=== PATIENT | female | born 1985 | race Caucasian/White ===

== ENCOUNTER 2017-07-11 10:59 | Inpatient (IN) | payer BC ==
[2017-07-11] VITALS (28 sets, daily range): BP systolic 90–132; BP diastolic 50–67; PULSE 61–90; TEMP 97.9–98.5
[~2017-07-11] VITALS: Ht 160 cm; Wt 84.5 kg
[~2017-07-11 10:59] MED LIST: MOTRIN 600600 MG/TAB PO; PERCOCET 325 MG1 TA2 PO; PRENATAL1 TA1 PO
[2017-07-11 11:26] LABS: BASO % 0.2 % (0.0-2.0); EOS # 0.1 (0.0-0.7); EOS % 0.5 % (0-4.0); GRAN # 7.5 (1.4-6.5); GRAN % 81.7 % (42.2-75.2); HEMATOCRIT 39.8 % (37.0-47.0); HEMOGLOBIN 13.6 g/dl (12.5-16.0); LYMPH # 1.2 (1.2-3.4); LYMPH % 12.6 % (20.0-51.0); MEAN CELL VOLUME 96 fl (80.0-100.0); MEAN CORPUSCULAR HEMOGLOBIN 33 pg (27.0-31.0); MEAN CORPUSCULAR HGB CONC 34 g/dl (33.0-37.0); MEAN PLATELET VOLUME 10.1 fl (7.4-10.4); MONO # 0.4 (0.1-0.6); MONO % 4.3 % (1.7-9.3); PLATELET COUNT 160 K/mm3 (130-400); RED BLOOD COUNT 4.13 M/mm3 (4.10-5.30); WHITE BLOOD COUNT 9.2 K/mm3 (4.8-10.8)
[2017-07-12 00:45] VITALS: BP 110/47; PULSE 71; TEMP 98.4
[2017-07-12 08:02] VITALS: BP 100/63; PULSE 70; TEMP 97.8
[2017-07-12] MEDS ORDERED: IBU800 M1 PO (08:26)
[2017-07-12 12:16] VITALS: BP 101/56; PULSE 71; TEMP 97.9
== END 2017-07-12 17:00 | disposition home or self-care (01) | DRG 775 ==
LOC: LDRO 10:59 → LDR 11:00 → LDRO 11:09 → LDR 11:09 → OB 22:39
PROVIDERS: Obstetrics & Gynecology
PROC: 10E0XZZ Delivery of Products of Conception, External Approach (ICD-10-PCS; principal; 2017-07-11)
DX: O48.0 Post-term pregnancy (principal); O34.211 Maternal care for low transverse scar from previous cesarean delivery; N85.8 Other specified noninflammatory disorders of uterus; Z3A.40 40 weeks gestation of pregnancy; Z37.0 Single live birth
CPT/HCPCS: J2405; J2590; J7120

== ENCOUNTER 2018-12-23 10:25 | Inpatient (IN) | payer BC ==
[~2018-12-23] VITALS: Ht 160 cm; Wt 81.8 kg
[2018-12-23] VITALS (31 sets, daily range): BP systolic 117–137; BP diastolic 54–79; PULSE 63–97; TEMP 97.2–98.2
[~2018-12-23 10:25] MED LIST changes: +IBU800 M1 PO
--- NOTE | 2018-12-23 11:00 | NUR ---
Patient ambulatory to R4 with . She was seen by Dr. Joseph in the office today and was 5cm dilated and is being admitted with routine labor orders. She is a G6L5 at 39.3 weeks gestation, she has had one and 4 successful VBACs. Patient changed into gown and wedged to left side in bed. EFMs explained and applied. FHR 130 bpm and reactive. Irregular CTX per toco and patient reports. VSS. Assessment completed and consents signed. IV started in left wrist with labs drawn from site. Patient requesting epidural at this time. LR bolus started per protocol and [employer] notified. Plan of care reviewed.
[2018-12-23 11:17] LABS: BASO % 0.1 % (0.0-2.0); EOS % 0.5 % (0-4.0); GRAN # 6.2 (1.4-6.5); HEMATOCRIT 37.5 % (37.0-47.0); LYMPH # 1.1 (1.2-3.4); LYMPH % 14.2 % (20.0-51.0); MEAN CELL VOLUME 96 fl (80.0-100.0); MEAN CORPUSCULAR HEMOGLOBIN 33 pg (27.0-31.0); MEAN CORPUSCULAR HGB CONC 35 g/dl (33.0-37.0); MEAN PLATELET VOLUME 10.1 fl (7.4-10.4); MONO # 0.4 (0.1-0.6); MONO % 4.6 % (1.7-9.3); PLATELET COUNT 144 K/mm3 (130-400); RED BLOOD COUNT 3.92 M/mm3 (4.10-5.30)
--- NOTE | 2018-12-23 11:32 | NUR ---
1125 CALIN Botello to room to place epidural. Patient sits upright on the side of the bed. FHR difficult to trace in this position, EFM tracing maternal HR as it coorelates with HR from spO2. 1132 Single shot administered by CALIN Botello, see anesthesia record for details.
--- NOTE | 2018-12-23 11:52 | NUR ---
Dr. Joseph to bedside, reviews FHR tracing, SVE with AROM. 6/70/-3 with small amount of clear fluid noted.
--- NOTE | 2018-12-23 13:30 | NUR ---
Pitocin started at 2mu per orders and protocol.
--- NOTE | 2018-12-23 16:41 | NUR ---
Delivery of viable female , to care of nursery RN Savannah Mireles produced immediate vigorous cry upon delivery. Cord clamped by Dr. Joseph and cut by father of . 1643- delivery of placenta, pitocin started per protocol. Patient tolerated well, fundal massage as indicarted. Will continue to monitor, patient resting comfortably in bed.
--- NOTE | 2018-12-23 20:00 | NUR ---
1999- EPIDURAL CATHETER REMOVED WITH BLUE TIP INTACT, IV TO SALINE LOCK, PT ASSISTED TO BATHROOM, ABLE TO VOID 200ML WITHOUT DIFFICULTY. PT PERFORMS PERICARE, CLEAN GOWN, PAD, AND PANTIES PROVIDED. NORMAL LOCHIA DISCUSSED. 2009- PT ASSISTED TO WHEELCHAIR. TO ROOM 216, BABY AND BELONINGS WITH PT. PT ORIENTED TO ROOM AND CALL LIGHTS. PLAN OF CARE DISCUSSED AND QUESTIONS ANSWERED. PT DENIES FURTHER NEEDS AT THIS TIME.
[2018-12-24 04:20] VITALS: BP 117/59; PULSE 62; TEMP 98.1
[2018-12-24] MEDS ORDERED: MOTRIN 800800 MG/TAB PO (06:42)
--- NOTE | 2018-12-24 09:23 | NUR ---
Initial visit attempt; Family resting, Physician Gynecologist left card of congratulations and information regarding the availability of [facility].
[2018-12-24 10:00] VITALS: BP 103/63; PULSE 81; TEMP 97.6
== END 2018-12-24 18:15 | disposition home or self-care (01) | DRG 807 ==
LOC: OB 10:25 → LDR 10:28 → OB 20:53
PROVIDERS: ADMIT Obstetrics & Gynecology
PROC: 10E0XZZ Delivery of Products of Conception, External Approach (ICD-10-PCS; principal; 2018-12-23)
DX: O99.62 Diseases of the digestive system complicating childbirth (principal); Z37.0 Single live birth; K21.9 Gastro-esophageal reflux disease without esophagitis; O34.211 Maternal care for low transverse scar from previous cesarean delivery; O69.1XX0 Labor and delivery complicated by cord around neck, with compression, not applicable or unspecified; Z3A.39 39 weeks gestation of pregnancy
CPT/HCPCS: J2590; J2795; J7120

== ENCOUNTER → 2021-01-14 | Outpatient (CLI) | payer BC ==
[~2021-01-14] MED LIST changes: +MOTRIN 800800 MG/TAB PO
== END ==
LOC: DIA.ED 13:51
DX: O24.419 Gestational diabetes mellitus in pregnancy, unspecified control (principal)
CPT/HCPCS: G0108